=== PATIENT | female | born 1950 | race American Indian/Alaskan Native ===

== ENCOUNTER 2020-12-06 09:58 | Outpatient (CLI) | payer MEDICARE ==
--- NOTE | 2020-12-06 11:21 | Cat Scan Report ---
CT HEAD WITHOUT CONTRAST INDICATION / CLINICAL INFORMATION: CVA. TECHNIQUE: Axial imaging performed from the skull apex through the skull base without the use of cont rast. Sagittal and coronal reformatted images. All CT scans at this location are performed using CT dose reduction for ALARA by means of automated exposure control. COMPARISON: None available. FINDINGS: CEREBRAL PARENCHYMA: No significant abnormality. No acute territorial infarct. HEMORRHAGE: None. EXTRA-AXIAL SPACES: Normal in size and morphology for the patient's age. VENTRICULAR SYSTEM: Normal in size and morphology for the patient's age. MIDLINE SHIFT OR HERNIATION: None. CEREBELLUM / BRAINSTEM: No significant abnormality. CALVARIUM: No significant abnormality. ORBITS: Chronic right medial orbital wall fracture is identified. Orbital cavities and contents are u nremarkable otherwise. PARANASAL SINUSES / MASTOID AIR CELLS: Normal as visualized. SOFT TISSUES of HEAD: No significant abnormality. ADDITIONAL FINDINGS: None. IMPRESSION: No acute intracranial abnormality. Signer Name: Sameer Contreras Jr, MD Signed: 12/06/2020 11:17 AM Workstation Name: [id number]
--- NOTE | 2020-12-06 13:15 | Vascular Lab Report ---
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 COMPARISON: None available. FINDINGS: RIGHT CAROTID: - PLAQUE ESTIMATE (%): 80-99% - CCA velocity: 65 cm/sec. - ICA peak systolic velocity: 385 cm/sec. - ICA/CCA PSV Ratio: 5.9 Right Vertebral Artery: Antegrade flow. LEFT CAROTID: - PLAQUE ESTIMATE: 50-79% - CCA velocity: 95 cm/sec. - ICA peak systolic velocity: 72 cm/sec. - ICA/CCA PSV Ratio: 1.8 Left Vertebral Artery: Antegrade flow. IMPRESSION: 1. Right Internal Carotid Artery: 80-99% diameter stenosis 2. Left Internal Carotid Artery: 50-79% diameter stenosis Velocity criteria are extrapolated from diameter data as defined by the Society of Radiologists in Ul trasound Consensus Conference, Radiology 2003; 229;340-346. Degree of || ICA PSV || Plaque || ICA/CCA Stenosis (%) || (cm/sec) || estimate (%) || PSV Ratio Normal ............. || ...<125........... || ...None......... || ...<2.0 <50................... || ...<125........... || ......<50......... || ...<2.0 50-69................ || ..125-230...... || ......>50......... || 2.0-4.0 >70 but <100... || >230.............. || .......>50........ || ...>4.0 Near occlusion || High/low/none || ...visible....... || variable Total occlusion || ....None........... || ..no lumen... || ....N/A Signer Name: Rolando MANRIQUEZ Signed: 12/06/2020 1:11 PM Workstation Name: [id number]"
== END 2020-12-06 09:59 | disposition home or self-care (01) ==
LOC: CT 09:58
PROVIDERS: ATTEND Internal Medicine
DX: I63.89 Other cerebral infarction (principal); I65.23 Occlusion and stenosis of bilateral carotid arteries
CPT/HCPCS: 70450; 93880

== ENCOUNTER 2021-03-19 17:50 | Emergency (ER) | payer MEDICARE ==
[2021-03-19 18:46] LABS: Bilirubin,Urine NEG (Negative); Blood,Urine NEG (Negative); Color,Urine Straw (Yellow); Mucus,Urine FEW /HPF; Protein,Urine <15 mg/dL mg/dL (Negative); Urobilinogen,Urine < 2.0 mg/dL (<2.0)
[2021-03-19 18:47] LABS: Basophils # (Auto) 0.1 K/mm3 (0.0-0.1); Basophils % (Auto) 0.9 % (0.0-1.8); Eosinophils # (Auto) 0.4 K/mm3 (0.0-0.4); Eosinophils % (Auto) 6.5 % (0.0-4.3); Hematocrit 34.9 % (30.3-42.9); Lymphocytes # (Auto) 3.2 K/mm3 (1.2-5.4); Lymphocytes % (Auto) 47.2 % (13.4-35.0); Mean Corpuscular HGB Conc 34 % (30-34); Mean Corpuscular Volume 96 fl (79-97); Monocytes # (Auto) 0.7 K/mm3 (0.0-0.8); Monocytes % (Auto) 10.3 % (0.0-7.3); Platelet Count 331 K/mm3 (140-440); Red Blood Count 3.65 M/mm3 (3.65-5.03); Red Cell Distribution Width 13.4 % (13.2-15.2)
[2021-03-19 18:58] LABS: Alanine Aminotransferase 39 units/L (7-56); Albumin 4.3 g/dL (3.9-5); Blood Urea Nitrogen 16 mg/dL (7-17); Calcium 9.9 mg/dL (8.4-10.2); Hemolysis Index 5
[2021-03-19 19:01] LABS: BUN/Creatinine Ratio 23
--- NOTE | 2021-03-19 20:13 | Emergency Department Report ---
ED General Adult HPI - General Chief complaint: Abdominal Pain Stated complaint: HIGH BP/STOMACH PAIN Time Seen by Provider: 03/19/21 19:40 Source: patient Mode of arrival: Wheelchair Limitations: Physical Limitation - History of Present Illness Initial comments: Patient is 71 years old female of hypertension and CVA. Patient brought to the emergency room by her daughter for evaluation of back pain that radiated down to her left leg. She stated that the pain is been on and off for a while. She also complaining of bilateral feet pain. Patient denied any chest pain, shortness of breath, nausea or vomiting. Patient initially stated that she is h aving abdominal pain but she stated that she does not have any pain anymore. Patient also denied any fever or chills. - Related Data Previous Rx's Medication Instructions Recorded Last Taken Type Nitrofurantoin Boundary/M-Cryst 100 mg PO Q12HR #14 capsule 02/27/15 Unknown Rx [Macrobid] amLODIPine 10 mg PO DAILY #30 tab 02/27/15 Unknown Rx Allergies Allergy/AdvReac Type Severity Reaction Status Date / Time No Known Allergies Allergy Unverified 02/27/15 07:21 ED Review of Systems ROS: Stated complaint: HIGH BP/STOMACH PAIN Other details as noted in HPI Comment: All other systems reviewed and negative Constitutional: denies: chills, fever Respiratory: denies: cough, shortness of breath, SOB with exertion Cardiovascular: denies: chest pain, palpitations, dyspnea on exertion Gastrointestinal: abdominal pain. denies: nausea, vomiting, diarrhea, constipation, hematemesis Musculoskeletal: arthralgia, myalgia. denies: back pain Neurological: denies: headache, weakness, numbness, paresthesias, confusion ED Past Medical Hx - Past Medical History Previous Medical History?: Yes Hx Hypertension: Yes Hx CVA: Yes (04/2020) - Surgical History Past Surgical History?: Yes Additional Surgical History: Hysterectomy - Social History Smoking Status: Current Every Day Smoker Substance Use Type: Alcohol - Medications Home Medications: Home Medications Medication Instructions Recorded Confirmed Last Taken Type Nitrofurantoin Boundary/M-Cryst 100 mg PO Q12HR #14 capsule 02/27/15 Unknown Rx [Macrobid] amLODIPine 10 mg PO DAILY #30 tab 02/27/15 Unknown Rx ED Physical Exam - General Limitations: Physical Limitation General appearance: alert, in no apparent distress - Head Head exam: Present: atraumatic, normocephalic, normal inspection - Eye Eye exam: Present: normal appearance, PERRL - ENT ENT exam: Present: normal exam, normal orophraynx, mucous membranes moist - Neck Neck exam: Present: normal inspection, full ROM. Absent: tenderness, meningismus - Respiratory Respiratory exam: Present: normal lung sounds bilaterally - Cardiovascular Cardiovascular Exam: Present: regular rate, normal rhythm, normal heart sounds - GI/Abdominal GI/Abdominal exam: Present: soft, normal bowel sounds. Absent: distended, tenderness, guarding, rebound, rigid, organomegaly, mass, bruit, pulsatile mass, hernia - Extremities Exam Extremities exam: Present: full ROM, normal capillary refill, pedal edema. Absent: calf tenderness - Back Exam Back exam: Present: normal inspection, full ROM. Absent: CVA tenderness (R), CVA tenderness (L) - Neurological Exam Neurological exam: Present: alert, oriented X3, CN II-XII intact - Psychiatric Psychiatric exam: Present: normal mood - Skin Skin exam: Present: warm, intact, normal color ED Course Vital Signs 03/19/21 18:03 Temperature 98.6 F Pulse Rate 67 Respiratory 18 Rate Blood Pressure 174/64 O2 Sat by Pulse 99 Oximetry ED Medical Decision Making - Lab Data Result diagrams: 03/19/21 18:17 03/19/21 18:17 - Medical Decision Making Patient is 71 years old female of hypertension and CVA. Patient brought to the emergency room by her daughter for evaluation of back pain that radiated down to her left leg. She stated that the pain is been on and off for a while. She also complaining of bilateral feet pain. Patient denied any chest pain, shortness of breath, nausea or vomiting. Patient initially stated that she is having abdominal pain but she stated that she does not have any pain anymore. Patient also denied any fever or chills. Labs reviewed and is unremarkable. Abdomen is soft and nontender no evidence of acute abdomen. Patient given prescription for tramadol, Zofran and Lasix. And patient advised to follow-up with her primary care physician in the next 2 to 3 days and to return to the ER she develop any new symptoms. Critical care attestation.: If time is entered above; I have spent that time in minutes in the direct care of this critically ill patient, excluding procedure time. ED Disposition Clinical Impression: Back pain, Peripheral edema Disposition: DC- TO HOME OR SELFCARE Is pt being admited?: No Condition: Stable Instructions: Abdominal Pain (ED), Peripheral Edema, Chronic Back Pain Referrals: RAMÓN WEST MD [Primary Care Provider] - 3-5 Days
[2021-03-19 20:51] VITALS: BP 174/72
== END 2021-03-19 20:42 | disposition home or self-care (01) ==
LOC: ED 17:50
DX: M54.9 Dorsalgia, unspecified (principal); R60.0 Localized edema; F17.200 Nicotine dependence, unspecified, uncomplicated; I10 Essential (primary) hypertension; Z79.899 Other long term (current) drug therapy; Z90.710 Acquired absence of both cervix and uterus; Z86.73 Personal history of transient ischemic attack (TIA), and cerebral infarction without residual deficits
CPT/HCPCS: 36415; 80053; 81001; 84484; 85025

== ENCOUNTER 2021-07-18 13:49 | Emergency (ER) | payer MEDICARE ==
[2021-07-18] MEDS ORDERED: cloNIDine 0.1 MG TAB PO ONE (15:54)
--- NOTE | 2021-07-18 16:33 | Vascular Lab Report ---
DUPLEX DOPPLER LOWER EXTREMITY VEINS, BILATERAL INDICATION / CLINICAL INFORMATION: b/l LE pain and swelling. TECHNIQUE: Duplex doppler imaging was performed through the veins of both lower extremities using venous ross jonny and other maneuvers. COMPARISON: None available. FINDINGS: RIGHT COMMON FEMORAL VEIN: Negative. RIGHT FEMORAL VEIN: Negative. RIGHT POPLITEAL VEIN: Negative. RIGHT CALF VEINS: Negative. LEFT COMMON FEMORAL VEIN: Negative. LEFT FEMORAL VEIN: Negative. LEFT POPLITEAL VEIN: Negative. LEFT CALF VEINS: Negative. ADDITIONAL FINDINGS: None. IMPRESSION: 1. No sonographic evidence for DVT in either lower extremity. Signer Name: Rocky Barraza MD Signed: 07/18/2021 4:29 PM Workstation Name: [id number]
[2021-07-18] MEDS: oxyCODONE /ACETAMINOPHEN 5-325MG TAB PO ONE ×2 (16:36→18:34)
--- NOTE | 2021-07-18 16:46 | XRay Report ---
CHEST 1 VIEW 07/18/2021 4:26 PM INDICATION / CLINICAL INFORMATION: BLE edema and murmur. COMPARISON: None available. FINDINGS: SUPPORT DEVICES: None. HEART / MEDIASTINUM: No significant abnormality. LUNGS / PLEURA: No significant pulmonary or pleural abnormality. No pneumothorax. ADDITIONAL FINDINGS: No significant additional findings. IMPRESSION: No acute abnormality. Signer Name: Remy Kessler MD Signed: 07/18/2021 4:41 PM Workstation Name: [id number]
[2021-07-18 16:55] VITALS: BP 162/78
[2021-07-18 16:58] LABS: Basophils # (Auto) 0.1 K/mm3 (0.0-0.1); Eosinophils # (Auto) 0.2 K/mm3 (0.0-0.4); Eosinophils % (Auto) 2.7 % (0.0-4.3); Hematocrit 39.2 % (30.3-42.9); Hemoglobin 12.9 gm/dl (10.1-14.3); Lymphocytes # (Auto) 2.4 K/mm3 (1.2-5.4); Mean Corpuscular HGB Conc 33 % (30-34); Mean Corpuscular Volume 94 fl (79-97); Monocytes # (Auto) 0.7 K/mm3 (0.0-0.8); Monocytes % (Auto) 10.6 % (0.0-7.3); Platelet Count 378 K/mm3 (140-440); Red Blood Count 4.19 M/mm3 (3.65-5.03); Red Cell Distribution Width 13.8 % (13.2-15.2)
--- NOTE | 2021-07-18 17:03 | Emergency Department Report ---
ED Extremity Problem HPI - General Chief complaint: Extremity Problem,Nontraumatic Stated complaint: KNOT IN LT THIGH, BOTH LEGS SWOLLEN Time Seen by Provider: 07/18/21 15:25 Source: patient Mode of arrival: Wheelchair Limitations: No Limitations - History of Present Illness Initial comments: 71-year-old female the past medical history of hypertension presents to the hospital with persistent leg edema and pain for last 3 to 4 months. Daughter at the bedside. Patient states that pain and swelling were worse 3 to 4 months ago and have gradually improved but still persistent. She is currently taking 1/2 tablet of tramadol 50 mg as needed for pain. Recently pain has been more severe described as a "kicking" pain rating to her thighs and radiating down her whole leg. She denies back pain, incontinence, fever, or redness. Patient denies chest pain, shortness of breath, or fever. Patient was told by her PMD to come to the hospital in March for vascular study. Daughter convinced patient to come today because pain is so severe she is unable to ambulate with her walker/cane. PMD Dr. Braulio West Severity scale (0 -10): 10 - Related Data Home Medications Medication Instructions Recorded Confirmed Last Taken Clopidogrel 75 mg PO 07/18/21 07/18/21 16:44 Simvastatin 20 mg PO QPM 07/18/21 07/18/21 Unknown labetaloL [Labetalol 200mg TAB] 200 mg PO BID 07/18/21 07/18/21 07/18/21 16:46 200 Previous Rx's Medication Instructions Recorded Last Taken Type Furosemide [Lasix] 20 mg PO QDAY #5 tablet 03/19/21 07/18/21 Rx 40 Ondansetron [Zofran Odt] 4 mg PO Q8HR PRN #14 tab.rapdis 03/19/21 Unknown Rx traMADoL [Ultram 50 MG tab] 50 mg PO Q4HR PRN #14 tablet 03/19/21 Unknown Rx oxyCODONE /ACETAMINOPHEN [Percocet 1 tab PO Q6HR PRN #15 tablet 07/18/21 Unknown Rx 5/325] Allergies Allergy/AdvReac Type Severity Reaction Status Date / Time Iodinated Contrast Media AdvReac Swelling Verified 07/18/21 14:38 ED Review of Systems ROS: Stated complaint: KNOT IN LT THIGH, BOTH LEGS SWOLLEN Other details as noted in HPI Comment: All other systems reviewed and negative ED Past Medical Hx - Past Medical History Hx Hypertension: Yes Hx CVA: Yes (04/2020) - Surgical History Additional Surgical History: Hysterectomy - Social History Smoking Status: Light Tobacco Smoker Substance Use Type: None - Medications Home Medications: Home Medications Medication Instructions Recorded Confirmed Last Taken Type Furosemide [Lasix] 20 mg PO QDAY #5 tablet 03/19/21 07/18/21 07/18/21 Rx 40 Ondansetron [Zofran Odt] 4 mg PO Q8HR PRN #14 tab.rapdis 03/19/21 07/18/21 Unknown Rx traMADoL [Ultram 50 MG tab] 50 mg PO Q4HR PRN #14 tablet 03/19/21 07/18/21 Unknown Rx Clopidogrel 75 mg PO 07/18/21 07/18/21 16:44 History Simvastatin 20 mg PO QPM 07/18/21 07/18/21 Unknown History labetaloL [Labetalol 200mg TAB] 200 mg PO BID 07/18/21 07/18/21 07/18/21 16:46 History 200 oxyCODONE /ACETAMINOPHEN [Percocet 1 tab PO Q6HR PRN #15 tablet 07/18/21 Unknown Rx 5/325] ED Physical Exam - General Limitations: No Limitations - Other Other exam information: General: No acute distress Head: Atraumatic Eyes: normal appearance ENT: Moist mucous membranes Neck: Normal appearance, no midline tenderness Chest: Clear to auscultation bilaterally CV: Regular rate and rhythm Abdomen: Soft, normal bowel sounds, nontender, nondistended, no rebound or guarding Back: Normal inspection Extremity: Bilateral lower extremity edema with tight appearing lower legs and tenderness to palpation diffusely. No warmth or erythema. No cyanosis. Limited range of motion of bilateral extremity secondary to pain Neuro: Alert O x 3, no facial asymmetry, speech clear, no gross motor sensory deficit Psych: Appropriate behavior Skin: No rash ED Course Vital Signs 07/18/21 07/18/21 07/18/21 14:39 15:26 16:48 Temperature 98.1 F 98.3 F Pulse Rate 82 88 Respiratory 18 18 Rate Blood Pressure 212/98 162/78 O2 Sat by Pulse 98 99 98 Oximetry ED Medical Decision Making - Lab Data Result diagrams: 07/18/21 16:28 07/18/21 19:00 Lab Results 07/18/21 07/18/21 Range/Units 16:28 19:00 WBC 6.3 (4.5-11.0) K/mm3 RBC 4.19 (3.65-5.03) M/mm3 Hgb 12.9 (10.1-14.3) gm/dl Hct 39.2 (30.3-42.9) % MCV 94 (79-97) fl MCH 31 (28-32) pg MCHC 33 (30-34) % RDW 13.8 (13.2-15.2) % Plt Count 378 (140-440) K/mm3 Lymph % (Auto) 38.0 H (13.4-35.0) % [place] % (Auto) 10.6 H (0.0-7.3) % Eos % (Auto) 2.7 (0.0-4.3) % Baso % (Auto) 1.0 (0.0-1.8) % Lymph # (Auto) 2.4 (1.2-5.4) K/mm3 [place] # (Auto) 0.7 (0.0-0.8) K/mm3 Eos # (Auto) 0.2 (0.0-0.4) K/mm3 Baso # (Auto) 0.1 (0.0-0.1) K/mm3 Seg Neutrophils % 47.7 (40.0-70.0) % Seg Neutrophils # 3.0 (1.8-7.7) K/mm3 Sodium 141 (137-145) mmol/L Potassium 3.8 (3.6-5.0) mmol/L Chloride 103.8 (98-107) mmol/L Carbon Dioxide 20 L (22-30) mmol/L Anion Gap 21 mmol/L BUN 10 (7-17) mg/dL Creatinine 0.7 (0.6-1.2) mg/dL Estimated GFR > 60 ml/min BUN/Creatinine Ratio 14 % Glucose 129 H (65-100) mg/dL Calcium 10.5 H (8.4-10.2) mg/dL Total Bilirubin 0.30 (0.1-1.2) mg/dL AST 15 (5-40) units/L ALT 12 (7-56) units/L Alkaline Phosphatase 136 H (35-129) units/L NT-Pro-B Natriuret Pep 588.2 (0-900) pg/mL Total Protein 7.5 (6.3-8.2) g/dL Albumin 4.1 (3.9-5) g/dL Albumin/Globulin Ratio 1.2 % - Radiology Data Radiology results: report reviewed Chest x-ray: No acute findings Bilateral Doppler lower extremity: Negative for DVT - Medical Decision Making 71-year-old female presents to the hospital with chronic bilateral lower extremity edema and leg pain. Came to the hospital to receive a Doppler as recommended by her PMD several months ago. Pain and swelling overall improving but worsening pain today which interfered with ability to ambulate with assistive devices. Patient treated with Percocet with improvement. Labs, x- ray, DVT study unremarkable. Patient is currently taking a diuretic. Will defer back to PMD for further work-up and prescribed Percocet as needed for severe pain episodes. Patient has chronic hypertension with decrease in BP after clonidine. No signs of hypertensive emergency Critical Care Time: No Critical care attestation.: If time is entered above; I have spent that time in minutes in the direct care of this critically ill patient, excluding procedure time. ED Disposition Clinical Impression: Bilateral leg edema, Chronic pain of lower extremity, bilateral Disposition: 01 HOME / SELF CARE / HOMELESS Is pt being admited?: No Does the pt Need Aspirin: No Condition: Stable Instructions: Edema Additional Instructions: Take the medication as prescribed. Follow-up with your doctor or doctor/clinic provided. Return if symptoms worsen as indicated by your discharge instructions. Prescriptions: oxyCODONE /ACETAMINOPHEN [Percocet 5/325] 1 tab PO Q6HR PRN #15 tablet PRN Reason: Pain Referrals: RAMÓN WEST MD [Referring] - 3-5 Days Time of Disposition: 20:04
[2021-07-18] MEDS ORDERED: oxyCODONE /ACETAMINOPHEN 5-325MG TAB PO ONE (18:23)
[2021-07-18 19:13] LABS: Alanine Aminotransferase 12 units/L (7-56); Albumin 4.1 g/dL (3.9-5); BUN/Creatinine Ratio 14; Blood Urea Nitrogen 10 mg/dL (7-17); Calcium 10.5 mg/dL (8.4-10.2); Hemolysis Index 8
== END 2021-07-18 20:30 | disposition home or self-care (01) ==
LOC: ED 13:49
DX: R60.0 Localized edema (principal); M79.605 Pain in left leg; M79.604 Pain in right leg; Z91.041 Radiographic dye allergy status; I10 Essential (primary) hypertension; Z90.710 Acquired absence of both cervix and uterus; F17.200 Nicotine dependence, unspecified, uncomplicated
CPT/HCPCS: 36415; 71045; 80053; 83880; 85025; 93970; 99284